=== PATIENT | female | born 1935 | race Caucasian/White ===

== ENCOUNTER → 2017-11-01 | Outpatient (CLI) | payer OTHER ==
[~2017-11-01] MED LIST: ACETAMINOPHEN PO; ALENDRONATE SOD35 MG PO; Aspirin E.C. PO; COREG3.125 M1 PO; Cipro PO; FUROSEMIDE20 MG PO; LASIX20 MG PO; LISINOPRIL40 MG PO; LOVASTATIN10 MG PO; LOVASTATIN40 MG PO; NADOLOL40 M1 PO; NADOLOL80 MG PO; Oyst-Cal D, Oscal W/ PO; PLAVIX75 MG PO; TYLENOL ARTHRI650 MG PO; Tylenol Arthritis Ex PO; VITAMIN C PO; VITAMIN C1000 MG PO; VITAMIN D1000 INTUN PO; VITAMIN D1000 UNIT PO; VITAMIN D2000 UNI1 PO; ZESTRIL,PRINIVI40 MG PO
[2017-11-01 12:46] LABS: TYPE OF FLUID THORACENTESIS
[2017-11-01 13:21] LABS: BODY FLUID GLUCOSE 108 MG/DL; BODY FLUID LDH 87 IU/L; BODY FLUID PROTEIN 3.2 G/DL
[2017-11-01 13:35] LABS: APPEARANCE YELLOW/CLEAR; BODY FLUID RBC'S 1000 /MM^3 (0-100); BODY FLUID WBC'S 663 /MM^3 (0-500); POLYNUCLEAR WBC'S 7 % (0-25)
[2017-11-01 13:36] LABS: BODY FLUID EOSINOPHILS 3 % (0-25); MONONUCLEAR WBC'S 90 %
== END | disposition home or self-care (01) ==
LOC: RAD 10:39 → EDSTATUS 11:00 → RAD 11:00
PROVIDERS: Thoracic Surgery (Cardiothoracic Vascular Surgery)
PROC: 0W993ZZ Drainage of Right Pleural Cavity, Percutaneous Approach (ICD-10-PCS; principal; 2017-11-01)
DX: J90 Pleural effusion, not elsewhere classified (principal)
CPT/HCPCS: 76942; 82945; 83615 91; 84157; 84315; 87070; 87075; 87102; 87116; 87205; 87206; 88108; 88305; 89051

== ENCOUNTER 2017-11-13 16:37 | Inpatient (IN) | payer OTHER ==
[~2017-11-13] VITALS: Ht 160 cm; Wt 48.1 kg
[2017-11-13 17:40] LABS: BASOPHIL (%) 0.4 % (0-1); EOSINOPHIL (%) 2.2 % (0-5); EOSINOPHIL COUNT 0.2 K/uL (0-0.3); HEMATOCRIT 34.6 % (36.0-46.0); HEMOGLOBIN 11.3 G/DL (11.9-15.5); IMMATURE GRANULOCYTE (%) 0.5 % (0.0-0.7); LYMPHOCYTE (%) 12.9 % (15-42); MCHC 32.7 G/DL (30.0-36.0); MCV 94.8 FL (83-99); MONOCYTE (%) 7.2 % (3-12); MONOCYTE COUNT 0.6 K/uL (0-0.8); NEUTROPHIL (%) 76.8 % (45-76); NEUTROPHIL COUNT 5.9 K/uL (1.8-6.4); PLATELET COUNT 222 K/uL (156-360); RBC DIS.WIDTH-CV 13.5 % (11.8-14.6); RBC DIS.WIDTH-SD 47.1 % (39-53); RED BLOOD COUNT 3.65 M/uL (3.80-5.20); WHITE BLOOD COUNT 7.7 K/uL (4.1-10.2)
[2017-11-13] MEDS ORDERED: CLOPIDOGREL75 MG PO (17:40)
[2017-11-13 17:43] LABS: CARBON DIOXIDE (BICARBONATE) 33.3 MEQ/L (20-31)
[2017-11-13 17:46] LABS: INTER. NORMALIZED RATIO 1.1
[2017-11-13 17:51] LABS: CHLORIDE 103 mEq/L (99-109); POTASSIUM 4.5 mEq/L (3.7-5.4); SODIUM 139 mEq/L (136-147)
[2017-11-13 17:52] LABS: GLUCOSE 87 mg/dL (70-99)
[2017-11-13 17:56] LABS: CREATININE 0.6 mg/dL (0.6-1.3); GFR ESTIMATE (CALCULATED) > 59 mL/min/
[2017-11-13 17:57] LABS: UREA NITROGEN (BUN) 24 mg/dL (9-23)
[2017-11-13] MEDS ORDERED: CALCIUM600 M1 PO (17:58)
[2017-11-13 18:03] LABS: TROP-I INTERPRETATION NEGATIVE; TROPONIN-I 0.03 ng/mL (0.0-0.30)
[2017-11-13] MEDS ORDERED: CARVEDILOL6.25 MG PO (18:12)
[2017-11-13 23:50] VITALS: BP 198/91
[2017-11-14 07:56] VITALS: BP 171/91
[2017-11-14 08:17] LABS: TROP-I INTERPRETATION NEGATIVE; TROPONIN-I 0.02 ng/mL (0.0-0.30)
[2017-11-14 13:46] LABS: TYPE OF FLUID PLEURAL
[2017-11-14 14:20] LABS: APPEARANCE SL. HAZY-YELLOW; BODY FLUID EOSINOPHILS 5 % (0-25); BODY FLUID RBC'S 1000 /MM^3 (0-100); BODY FLUID WBC'S 628 /MM^3 (0-500); MONONUCLEAR WBC'S 93 %; POLYNUCLEAR WBC'S 2 % (0-25)
[2017-11-14 15:05] LABS: BODY FLUID LDH 110 IU/L
[2017-11-14 15:46] LABS: BODY FLUID PROTEIN < 3.0 G/DL
[2017-11-14 16:19] VITALS: BP 96/56
[2017-11-14 20:04] VITALS: BP 112/65
[2017-11-15] VITALS (7 sets, daily range): BP systolic 105–151; BP diastolic 57–92
[2017-11-15 06:02] LABS: HEMATOCRIT 34.8 % (36.0-46.0); HEMOGLOBIN 11.5 G/DL (11.9-15.5); MCV 93.8 FL (83-99); PLATELET COUNT 229 K/uL (156-360); RBC DIS.WIDTH-CV 13.5 % (11.8-14.6); RBC DIS.WIDTH-SD 46.5 % (39-53); RED BLOOD COUNT 3.71 M/uL (3.80-5.20); WHITE BLOOD COUNT 8.1 K/uL (4.1-10.2)
[2017-11-15 06:30] LABS: CHLORIDE 98 MEQ/L (99-109); CREATININE 0.5 MG/DL (0.6-1.3); GFR ESTIMATE (CALCULATED) > 59 mL/min/; GLUCOSE 85 mg/dL (70-99); MAGNESIUM 1.8 mg/dl (1.3-2.7); POTASSIUM 3.8 MEQ/L (3.7-5.4); SODIUM 137 MEQ/L (136-147); UREA NITROGEN (BUN) 24 mg/dL (9-23)
[2017-11-16 06:21] LABS: BASOPHIL (%) 0.3 % (0-1); EOSINOPHIL (%) 2.5 % (0-5); EOSINOPHIL COUNT 0.2 K/uL (0-0.3); HEMATOCRIT 31.6 % (36.0-46.0); HEMOGLOBIN 10.4 G/DL (11.9-15.5); IMMATURE GRANULOCYTE (%) 0.7 % (0.0-0.7); LYMPHOCYTE (%) 11.1 % (15-42); MCH 30.5 PG (29.0-34.0); MCHC 32.9 G/DL (30.0-36.0); MCV 92.7 FL (83-99); MONOCYTE (%) 8.8 % (3-12); MONOCYTE COUNT 0.8 K/uL (0-0.8); NEUTROPHIL (%) 76.6 % (45-76); NEUTROPHIL COUNT 6.8 K/uL (1.8-6.4); PLATELET COUNT 206 K/uL (156-360); RBC DIS.WIDTH-CV 13.4 % (11.8-14.6); RED BLOOD COUNT 3.41 M/uL (3.80-5.20); WHITE BLOOD COUNT 8.8 K/uL (4.1-10.2)
[2017-11-16 06:36] LABS: CHLORIDE 95 MEQ/L (99-109); CREATININE 0.5 MG/DL (0.6-1.3); GFR ESTIMATE (CALCULATED) > 59 mL/min/; GLUCOSE 88 mg/dL (70-99); POTASSIUM 3.8 MEQ/L (3.7-5.4); SODIUM 134 MEQ/L (136-147); UREA NITROGEN (BUN) 25 mg/dL (9-23)
[2017-11-16 07:23] VITALS: BP 128/72
[2017-11-16 11:20] VITALS: BP 96/54
[2017-11-16 15:15] VITALS: BP 123/70
[2017-11-16 21:26] VITALS: BP 130/80
[2017-11-16 23:17] VITALS: BP 143/70
[2017-11-17 03:48] VITALS: BP 140/80
[2017-11-17 06:27] LABS: BASOPHIL (%) 0.3 % (0-1); EOSINOPHIL (%) 2.9 % (0-5); EOSINOPHIL COUNT 0.3 K/uL (0-0.3); HEMATOCRIT 33.3 % (36.0-46.0); HEMOGLOBIN 11.1 G/DL (11.9-15.5); IMMATURE GRANULOCYTE (%) 0.7 % (0.0-0.7); LYMPHOCYTE (%) 9.3 % (15-42); LYMPHOCYTE COUNT 0.8 K/uL (1.0-2.8); MCH 31.1 PG (29.0-34.0); MCHC 33.3 G/DL (30.0-36.0); MCV 93.3 FL (83-99); MONOCYTE (%) 7.8 % (3-12); MONOCYTE COUNT 0.7 K/uL (0-0.8); NEUTROPHIL COUNT 7.1 K/uL (1.8-6.4); PLATELET COUNT 199 K/uL (156-360); RBC DIS.WIDTH-CV 13.2 % (11.8-14.6); RBC DIS.WIDTH-SD 45.6 % (39-53); RED BLOOD COUNT 3.57 M/uL (3.80-5.20); WHITE BLOOD COUNT 8.9 K/uL (4.1-10.2)
[2017-11-17 06:54] LABS: CHLORIDE 92 MEQ/L (99-109); CREATININE 0.4 MG/DL (0.6-1.3); GFR ESTIMATE (CALCULATED) > 59 mL/min/; GLUCOSE 86 mg/dL (70-99); POTASSIUM 4.1 MEQ/L (3.7-5.4); SODIUM 132 MEQ/L (136-147); UREA NITROGEN (BUN) 18 mg/dL (9-23)
[2017-11-17 07:20] VITALS: BP 142/70
[2017-11-17 11:22] VITALS: BP 110/62
[2017-11-17 15:34] VITALS: BP 105/58
[2017-11-17] MEDS ORDERED: APRESOLINE25 MG PO (16:29)
[2017-11-17] MEDS ORDERED: ASPIR-LOW81 MG PO (16:29)
[2017-11-17] MEDS ORDERED: Chronulac,Cephulac,E PO (16:30)
[2017-11-20] MEDS ORDERED: PLAVIX75 MG PO (11:35)
[2017-11-20] MEDS ORDERED: ULTRAM50 MG PO (12:01)
== END 2017-11-17 19:10 | disposition hospice, home (50) | DRG 180 ==
LOC: EME 16:37 → EDOF 21:37 → 5EAST 21:37 → ENRESERV 21:37 → 5EAST 23:13
PROVIDERS: Emergency Medicine; Hospitalist; Internal Medicine
PROC: 0W9B3ZX Drainage of Left Pleural Cavity, Percutaneous Approach, Diagnostic (ICD-10-PCS; principal; 2017-11-14)
PROC: 0W993ZX Drainage of Right Pleural Cavity, Percutaneous Approach, Diagnostic (ICD-10-PCS; 2017-11-17)
DX: C78.2 Secondary malignant neoplasm of pleura (principal); J96.01 Acute respiratory failure with hypoxia; E43 Unspecified severe protein-calorie malnutrition; J98.11 Atelectasis; Z68.1 Body mass index [BMI] 19.9 or less, adult; C34.11 Malignant neoplasm of upper lobe, right bronchus or lung; C77.1 Secondary and unspecified malignant neoplasm of intrathoracic lymph nodes; J91.0 Malignant pleural effusion; Z66 Do not resuscitate; Z51.5 Encounter for palliative care; K59.00 Constipation, unspecified; K43.9 Ventral hernia without obstruction or gangrene; I10 Essential (primary) hypertension; E78.5 Hyperlipidemia, unspecified; D64.9 Anemia, unspecified; N28.1 Cyst of kidney, acquired; Z90.710 Acquired absence of both cervix and uterus; Z90.49 Acquired absence of other specified parts of digestive tract; Z86.73 Personal history of transient ischemic attack (TIA), and cerebral infarction without residual deficits; Z85.820 Personal history of malignant melanoma of skin; Z79.02 Long term (current) use of antithrombotics/antiplatelets; Z88.5 Allergy status to narcotic agent; Z88.1 Allergy status to other antibiotic agents; Z88.2 Allergy status to sulfonamides; Z79.82 Long term (current) use of aspirin
CPT/HCPCS: 71045; 71275; 74177; 76942; 80048; 81003; 82803; 83605; 83615 91; 83735; 83880; 84157; 84484; 85025; 85027; 85610; 86850; 86900; 86901; 87070; 87205; 88108; 88305; 88312; 89051; 93005; 94760; 94799; 97530 GO; 97530 GP; 99281; 99285; A6214; J1644; J1885; J1940; J7030

== ENCOUNTER → 2017-11-20 | Outpatient (CLI) | payer OTHER ==
[~2017-11-20] MED LIST changes: +APRESOLINE25 MG PO; +ASPIR-LOW81 MG PO; +CALCIUM600 M1 PO; +CARVEDILOL6.25 MG PO; +CLOPIDOGREL75 MG PO; +Chronulac,Cephulac,E PO; +ULTRAM50 MG PO
== END | disposition home or self-care (01) ==
LOC: OPR 10:30 → EDSTATUS 10:30 → OPR 10:57
PROC: 0W9930Z Drainage of Right Pleural Cavity with Drainage Device, Percutaneous Approach (ICD-10-PCS; principal; 2017-11-20)
DX: J90 Pleural effusion, not elsewhere classified (principal)
CPT/HCPCS: 32555; C1729